=== PATIENT | female | born 1995 | race Hispanic/Latino ===

== ENCOUNTER 2020-04-06 00:45 | Emergency (ER) | payer OTHER, SELFPAY ==
[2020-04-06] MEDS ORDERED: MORPHINE 4 MG/ML SYR ONE (01:20)
[2020-04-06] MEDS ORDERED: NA CHLORIDE 0.9% 1,000 ML ONE (01:20)
[2020-04-06] MEDS ORDERED: ONDANSETRON 4 MG/2 ML VIAL ONE (01:20)
[2020-04-06 01:38] LABS: Basophils % 0.8 % (0-1.3); Hematocrit 40.3 % (36.0-45.0); Lymphocytes % 25.8 % (15.3-44.8); MPV 9.6 fL (7.6-11.3); RBC Red Blood Cell Count 4.79 M/uL (3.86-4.86)
[2020-04-06 01:50] LABS: ALT/SGPT 34 U/L (12-78); AST/SGOT 16 U/L (15-37); Albumin 3.8 g/dL (3.4-5.0); Alkaline Phosphatase 77 U/L (45-117); BUN Blood Urea Nitrogen 8 mg/dL (7-18); Bicarbonate 25 mmol/L (21-32); Bilirubin Direct < 0.1 mg/dL (0-0.2); Bilirubin Total 0.4 mg/dL (0.2-1.0); Glucose Level 105 mg/dL (74-106); Lipase 108 U/L (73-393); Potassium 3.2 mmol/L (3.5-5.1); Protein, Total 8.3 g/dL (6.4-8.2); Sodium Level 140 mmol/L (136-145); Troponin (Emerg Dept Use Only) < 0.02 ng/mL (0.0-0.045)
--- NOTE | 2020-04-06 03:17 | ER ---
Nurse's Notes [facility] Name: Elvira Azevedo Age: 25 yrs Sex: Female : 1995 Arrival Date: 04/06/2020 Time: 00:51 Bed 2 Private MD: Diagnosis: Chest pain, unspecified;Cholelithiasis Presentation: 04/06 01:06 Chief complaint: Patient states: i was in [facility] and i was diagnosed with mg2 gall stones. now i have abdominal pain radiating to my right upper chest. Coronavirus screen: Proceed with normal triage. Patient denies a cough. Patient denies shortness of breath or difficulty breathing. Patient denies measured and/or subjective temperature greater than 100.4F prior to today's visit. Patient denies travel on a cruise ship or to a country the [facility] currently lists as an affected area. Patient denies contact with known and/or suspected case of COVID-19. Ebola Screen: No symptoms or risks identified at this time. Initial Sepsis Screen: Does the patient meet any 2 criteria? No. Patient's initial sepsis screen is negative. Does the patient have a suspected source of infection? No. Patient's initial sepsis screen is negative. Risk Assessment: Do you want to hurt yourself or someone else? Patient reports no desire to harm self or others. Onset of symptoms was March 2020. 01:06 Method Of Arrival: Wheelchair mg2 01:06 Acuity: DENIZ 3 mg2 Historical: - Allergies: 01:09 No Known Allergies; mg2 - Home Meds: 01:09 None [Active]; mg2 - PMHx: 01:09 Cholelithiasis; mg2 - PSHx: 01:09 None; mg2 - Immunization history:: Flu vaccine is not up to date. - Social history:: Smoking status: Patient denies any tobacco usage or history of. Patient/guardian denies using alcohol, street drugs, IV drugs. Screenin:18 Abuse screen: Denies threats or abuse. Denies injuries from another. Nutritional mg2 screening: No deficits noted. Tuberculosis screening: No symptoms or risk factors identified. Fall Risk IV access (20 points). Assessment: 01:17 General: Appears in no apparent distress. comfortable, Behavior is calm, cooperative. mg2 Pain: Complains of pain in abdomen Pain radiates to chest Pain currently is 6 out of 10 on a pain scale. Quality of pain is described as aching, Pain began gradually, 2-3 days ago. Is intermittent. Neuro: Level of Consciousness is awake, alert, obeys commands, Oriented to person, place, time, situation. Cardiovascular: Capillary refill < 3 seconds Patient's skin is warm and dry. Respiratory: Airway is patent Respiratory effort is even, unlabored, Respiratory pattern is regular, symmetrical. GI: Reports upper abdominal pain. : No signs and/or symptoms were reported regarding the genitourinary system. EENT: No signs and/or symptoms were reported regarding the EENT system. Derm: Skin is intact, is healthy with good turgor, Skin is pink, warm \T\ dry. normal. Musculoskeletal: Circulation, motion, and sensation intact. Capillary refill < 3 seconds. 03:05 Reassessment: No changes from previously documented assessment. Patient and/or family mg2 updated on plan of care and expected duration. Pain level reassessed. Patient is alert, oriented x 3, equal unlabored respirations, skin warm/dry/pink. Vital Signs: 01:06 BP 129 / 83; Pulse 85; Resp 18; Temp 99.1; Pulse Ox 100% on R/A; Height 5 ft. 7 in. mg2 (170.18 cm); Pain 6/10; 03:04 BP 130 / 70; Pulse 80; Resp 18; Pulse Ox 100% on R/A; mg2 ED Course: 00:51 Patient arrived in ED. cf2 00:56 Camron Valle NP is PHCP. pm1 00:56 Markus Noel MD is Attending Physician. pm1 01:04 Sukhwinder Washington RN is Primary Nurse. mg2 01:08 Triage completed. mg2 01:09 Arm band placed on. mg2 01:15 Initial lab(s) drawn, by me, sent to lab. Inserted saline lock: 20 gauge in left rv antecubital area, using aseptic technique. Blood collected. 01:18 Patient has correct armband on for positive identification. Pulse ox on. NIBP on. Door mg2 closed. Warm blanket given. 01:18 No provider procedures requiring assistance completed. Patient maintains SpO2 mg2 saturation greater than 95% on room air. 02:45 CT Abd/Pelvis - IV Contrast Only In Process Unspecified. EDMS 03:39 IV discontinued, intact, bleeding controlled, No redness/swelling at site. Pressure rv dressing applied. Administered Medications: 01:14 Drug: NS 0.9% 1000 ml Route: IV; Rate: 1000 ml; Site: left antecubital; rv 03:28 Follow up: Response: No adverse reaction; IV Status: Completed infusion; IV Intake: mg2 1000ml 01:17 Not Given (Patient Refused): morphine 4 mg IVP once; RASS on ADMIN: Combtv4, Very mg2 Agttd3, Agttd2, Rstlss1, AlertClm0, Drwsy-1, Lt Sdtn-2, Mod Sdtn-3, Dp Sdtn-4, UnArsble-5 01:17 Not Given (Patient Refused): Zofran (Ondansetron) 4 mg IVP once; over 2 minutes mg2 Intake: 03:28 IV: 1000ml; Total: 1000ml. mg2 Outcome: 03:17 Discharge ordered by MD. pm1 03:39 Discharged to home ambulatory. rv 03:39 Condition: improved 03:39 Discharge instructions given to patient, Instructed on discharge instructions, follow up and referral plans. Demonstrated understanding of instructions, follow-up care. 03:40 Instructed on medication usage, Demonstrated understanding of medications, rv Prescriptions given X 2. 03:40 Patient left the ED. rv Signatures: Dispatcher [employer] EDMS Camron Valle NP RADIATOR CORE TESTER pm1 Sukhwinder Washington RN RN mg2 Kt Peña RN RN rv Zohaib Alaniz 2
--- NOTE | 2020-04-06 03:17 | EDPHYS ---
Physician Documentation [facility] Name: Elvira Azevedo Age: 25 yrs Sex: Female : 1995 Arrival Date: 04/06/2020 Time: 00:51 Bed 2 Private MD: ED Physician Markus Noel HPI: 04/06 01:01 This 25 yrs old Female presents to ER via Unassigned with complaints of Chest pm1 Pain, Abdominal Pain. 01:01 The patient presents with abdominal pain in the right upper quadrant. Onset: The pm1 symptoms/episode began/occurred 3 day(s) ago. The symptoms do not radiate. Associated signs and symptoms: Pertinent positives: chest pain, Pertinent negatives: diarrhea, dysuria, fever, nausea, shortness of breath, vomiting. The symptoms are described as sharp. Modifying factors: The symptoms are alleviated by nothing, the symptoms are aggravated by nothing. Severity of pain: in the emergency department the pain is actually worse. The patient has experienced similar episodes in the past, Has been diagnosed with cholelithiasis multiple times. Recently seen at [facility] on 04/01/2020 for the same complaint and was discharged home. Historical: - Allergies: 01:09 No Known Allergies; mg2 - Home Meds: 01:09 None [Active]; mg2 - PMHx: 01:09 Cholelithiasis; mg2 - PSHx: 01:09 None; mg2 - Immunization history:: Flu vaccine is not up to date. - Social history:: Smoking status: Patient denies any tobacco usage or history of. Patient/guardian denies using alcohol, street drugs, IV drugs. ROS: 01:09 Constitutional: Negative for fever, chills, and weight loss, Eyes: Negative for injury, pm1 pain, redness, and discharge, ENT: Negative for injury, pain, and discharge, Neck: Negative for injury, pain, and swelling. 01:09 Respiratory: Negative for shortness of breath, cough, wheezing, and pleuritic chest pain. 01:09 Back: Negative for injury and pain, : Negative for injury, bleeding, discharge, and swelling, MS/Extremity: Negative for injury and deformity, Skin: Negative for injury, rash, and discoloration, Neuro: Negative for headache, weakness, numbness, tingling, and seizure. 01:09 Cardiovascular: Positive for chest pain, Negative for edema, orthopnea. 01:09 Abdomen/GI: Positive for abdominal pain, nausea and vomiting, of the right upper quadrant, Negative for diarrhea, constipation. Exam: 01:09 Constitutional: This is a well developed, well nourished patient who is awake, alert, pm1 and in no acute distress. Head/Face: Normocephalic, atraumatic. Chest/axilla: Normal chest wall appearance and motion. Nontender with no deformity. No lesions are appreciated. 01:09 Back: No spinal tenderness. No costovertebral tenderness. Full range of motion. Skin: Warm, dry with normal turgor. Normal color with no rashes, no lesions, and no evidence of cellulitis. MS/ Extremity: Pulses equal, no cyanosis. Neurovascular intact. Full, normal range of motion. 01:09 Cardiovascular: Exam negative for acute changes, Rate: normal, Rhythm: regular, Pulses: no pulse deficits are appreciated. 01:09 Respiratory: Exam negative for acute changes, respiratory distress, shortness of breath. 01:09 Abdomen/GI: Exam negative for acute changes, Inspection: abdomen appears normal, Palpation: abdomen is soft and non-tender, in all quadrants. 01:09 Neuro: Exam negative for acute changes, Orientation: is normal, Motor: is normal, moves all fours. Vital Signs: 01:06 BP 129 / 83; Pulse 85; Resp 18; Temp 99.1; Pulse Ox 100% on R/A; Height 5 ft. 7 in. mg2 (170.18 cm); Pain 6/10; 03:04 BP 130 / 70; Pulse 80; Resp 18; Pulse Ox 100% on R/A; mg2 MDM: 00:56 Patient medically screened. pm1 01:58 Data reviewed: vital signs. Data interpreted: Pulse oximetry: on room air is 100 %. pm1 Interpretation: normal. 03:16 Counseling: I had a detailed discussion with the patient and/or guardian regarding: the pm1 historical points, exam findings, and any diagnostic results supporting the discharge/admit diagnosis, lab results, radiology results, the need for outpatient follow up, for definitive care, a general surgeon, to return to the emergency department if symptoms worsen or persist or if there are any questions or concerns that arise at home. 04/06 01:05 Order name: Basic Metabolic Panel; Complete Time: 01:53 pm1 04/06 01:05 Order name: CBC with Diff; Complete Time: 01:53 pm04/06 01:05 Order name: Hepatic Function; Complete Time: 01:53 pm04/06 01:05 Order name: Lipase; Complete Time: 01:53 pm04/06 01:06 Order name: CT Abd/Pelvis - IV Contrast Only pm1 04/06 01:06 Order name: Troponin (emerg Dept Use Only); Complete Time: 01:53 pm04/06 01:05 Order name: IV Saline Lock; Complete Time: 01:14 pm04/06 01:05 Order name: Labs collected and sent; Complete Time: :15 pm1 Administered Medications: :14 Drug: NS 0.9% 1000 ml Route: IV; Rate: 1000 ml; Site: left antecubital; rv 03:28 Follow up: Response: No adverse reaction; IV Status: Completed infusion; IV Intake: mg2 1000ml 01:17 Not Given (Patient Refused): morphine 4 mg IVP once; RASS on ADMIN: Combtv4, Very mg2 Agttd3, Agttd2, Rstlss1, AlertClm0, Drwsy-1, Lt Sdtn-2, Mod Sdtn-3, Dp Sdtn-4, UnArsble-5 01:17 Not Given (Patient Refused): Zofran (Ondansetron) 4 mg IVP once; over 2 minutes mg2 Disposition: 07:01 Co-signature as Attending Physician, Markus Noel MD. [email or web address] Disposition: 04/06/20 03:17 Discharged to Home. Impression: Cholelithiasis, Chest pain, unspecified. - Condition is Stable. - Discharge Instructions: Nonspecific Chest Pain, Cholelithiasis. - Prescriptions for Bentyl 20 mg Oral Tablet - take 1 tablet by ORAL route every 6 hours As needed; 20 tablet. Zofran 4 mg Oral Tablet - take 1 tablet by ORAL route every 8 hours As needed; 20 tablet. - Medication Reconciliation Form, Thank You Letter, Antibiotic Education, Prescription Opioid Use form. - Follow up: Emergency Department; When: As needed; Reason: Worsening of condition. Follow up: Private Physician; When: 2 - 3 days; Reason: Recheck today's complaints, Continuance of care, Re-evaluation by your physician. - Problem is new. - Symptoms have improved. Signatures: Dispatcher [employer] EDMS Camron Valle NP FLOOR WORKER [employer] pm1 Sukhwinder Washington, RN RN mg2 Kt Peña RN RN rv Markus Noel MD MD [email or web address] Corrections: (The following items were deleted from the chart) 03:40 03:17 04/06/2020 03:17 Discharged to Home. Impression: CholelithiasisChest pain, rv unspecified. Condition is Stable. Forms are Medication Reconciliation Form, Thank You Letter, Antibiotic Education, Prescription Opioid Use. Follow up: Emergency Department; When: As needed; Reason: Worsening of condition. Follow up: Private Physician; When: 2 - 3 days; Reason: Recheck today's complaints, Continuance of care, Re-evaluation by your physician. Problem is new. Symptoms have improved. pm1
[2020-04-06 04:12] VITALS: TEMP 99.1; O2SAT 100
[2020-04-06 04:14] VITALS: BP 130/70
--- NOTE | 2020-04-06 09:34 | RAD REPORT ---
EXAM DESCRIPTION: CT - Abdomen Pelvis W Contrast - 04/06/2020 3:54 am CLINICAL HISTORY: ABD PAIN TECHNIQUE: Contiguous axial images obtained through the abdomen and pelvis following the uneventful administration of IV contrast. Coronal and sagittal reformatted images were provided. This exam was performed according to our departmental dose-optimization program, which includes autom ated exposure control, adjustment of the mA and/or kV according to patient size and/or use of iterati ve reconstruction technique. COMPARISON: Correlation is made with abdominal ultrasound dated 04/01/2020 FINDINGS: Lung bases: Clear Liver: The liver is diffusely low in density compatible with steatosis. Gallbladder and biliary system: Subtle intraluminal heterogeneity in keeping with recently seen galls tones. No gallbladder wall thickening or pericholecystic fluid. Pancreas: Unremarkable Spleen: Unremarkable Adrenals: Unremarkable Kidneys: Normal renal cortical enhancement. 1.2 cm cortical cyst at the anterior mid pole on the righ t. No calculi. No hydronephrosis. Bowel: Moderate stool within the proximal large bowel. No obstruction. No appreciable mucosal thicken ing. Appendix: Normal caliber appendix. No findings to suggest acute appendicitis. Urinary bladder: The urinary bladder is decompressed. Reproductive: Unremarkable as visualized Lymph nodes: No pathologically enlarged lymph nodes. Peritoneum: No focal fluid collection. No free air. Vessels: No abdominal aortic aneurysm. Abdominal wall: Unremarkable Bones: Mild multilevel spondylosis. No acute fracture. IMPRESSION: 1. No acute abnormality identified within the abdomen and pelvis. 2. Other findings as above. Electronically signed by: Minoo William MD 04/06/2020 3:04 AM CDT Due to temporary technical issues with the PACS/Fluency reporting system, reports are being signed by the in house radiologist without review as a courtesy to ensure prompt reporting. The interpreting r adiologist is fully responsible for the content of the report.
== END 2020-04-06 03:40 | disposition home or self-care (01) ==
LOC: ER 00:45
DX: K80.20 Calculus of gallbladder without cholecystitis without obstruction (principal)
CPT/HCPCS: 36415; 74177; 80048; 80076; 83690; 84484; 85025; 96360; 96361; 99284; J2405; J7030; Q9967